=== PATIENT | female | born 1985 | race Caucasian/White ===

== ENCOUNTER 2016-06-26 20:20 | Emergency (ER) | payer MEDICAID ==
[~2016-06-26] VITALS: Ht 175.3 cm; Wt 112.0 kg
[~2016-06-26 20:20] MED LIST: AMOX875T PO; BACL10TA PO; DICL75 PO; PRED20 PO; VIST50CA PO; Z.0.NO CURRENT MEDS
[2016-06-26 20:21] VITALS: BP 139/76; PULSE 72; RESP 15; TEMP 98.3; O2SAT 96
[2016-06-26 22:00] VITALS: BP 125/58; PULSE 58; RESP 20; O2SAT 97
[2016-06-26] MEDS ORDERED: CEPH-460 PO (22:52)
[2016-06-26] MEDS ORDERED: NAPR500 PO (22:52)
--- NOTE | 2016-06-26 22:52 | PD ---
HPI Chief Complaint: Lump, Cyst, Hernia Time Seen by Provider: 21:53 Travel History International Travel<30 days: No Contact w/Intl Traveler<30days: No Traveled to known affect area: No History of Present Illness HPI So 31 year-old woman presents emergency room complaining of a tender nodule on the back of her head this gotten inflamed over the past couple days. She states she first noticed a small knot back or at a year or so ago. She is on past couple days gotten tender and inflamed. States she feels the whole back of her head is swollen. She is tearful and anxious. She states she's been having blurry vision and fullness in her head. She also states she's been very tired. History Past Medical History Narrative Medical Bipolar disorder Tetanus Vaccination: Unknown Influenza Vaccination: No LMP: 2 WKS AGO : 3 Para: 2 Past Surgical History Surgical History: No Previous Surgery Social History Alcohol Use: No Tobacco Use: Yes (1/2 PK/DAY) Allergies-Medications (Allergen,Severity, Reaction): Coded Allergies: No Known Allergies (Verified , 06/26/16) Reported Meds & Prescriptions Reported Meds & Active Scripts Active Keflex (Cephalexin) 500 Mg Cap 500 Mg PO Q8H 7 Days Naprosyn (Naproxen) 500 Mg Tab 500 Mg PO BID PRN Review of Systems Except as stated in HPI: all other systems reviewed are Neg Physical Exam Narrative Gen.: 31 year-old woman, anxious tearful HEENT: Really pretty normal appearance on my examination. She states that she has marked fullness in the back of her head. I can feel may be a small tender nodule the base of the right occiput, but no significant abnormalities are appreciable. She states that there is a line on the back of her head. The skin is normal in color. I don't see any erythema redness or drainage. The TMs are normal on both sides. The musculature in the next normal both sides. I don't see any evidence of a zoster rash or vesicular lesions. The area seems to be tender but don't see marked allodynia. She is not demonstrating any meningismus. Eyes: Sclera quiet and white. Pupils equal and reactive. NEURO: Moves all extremities. There is no facial asymmetry. Psychiatric: She is very tearful. She is very defensive when I told her that I don't see any abnormalities on her head that she is referring to. Data Data Last Documented VS Vital Signs Date Time Temp Pulse Resp B/P Pulse Ox O2 Delivery O2 Flow Rate FiO2 06/26/16 22:00 58 20 125/58 97 Room Air 06/26/16 20:21 98.3 Orders Complete Blood Count With Diff (06/26/16 22:38) Labs Laboratory Tests Test 06/26/16 22:45 White Blood Count 10.6 TH/MM3 Red Blood Count 5.26 MIL/MM3 Hemoglobin 15.2 GM/DL Hematocrit 44.7 % Mean Corpuscular Volume 85.0 FL Mean Corpuscular Hemoglobin 29.0 PG Mean Corpuscular Hemoglobin 34.1 % Concent Red Cell Distribution Width 13.6 % Platelet Count 299 TH/MM3 Mean Platelet Volume 7.5 FL Neutrophils (%) (Auto) 49.5 % Lymphocytes (%) (Auto) 39.4 % Monocytes (%) (Auto) 6.5 % Eosinophils (%) (Auto) 3.8 % Basophils (%) (Auto) 0.8 % Neutrophils # (Auto) 5.2 TH/MM3 Lymphocytes # (Auto) 4.2 TH/MM3 Monocytes # (Auto) 0.7 TH/MM3 Eosinophils # (Auto) 0.4 TH/MM3 Basophils # (Auto) 0.1 TH/MM3 CBC Comment DIFF FINAL Differential Comment MDM Medical Decision Making Medical Screen Exam Complete: Yes Emergency Medical Condition: Yes Interpretation(s) CBC is unremarkable. Differential Diagnosis Occipital neuralgia, shingles, abscess, brain mass, other Narrative Course Medical decision making Is a 31 year-old woman presents emergent department with what she describes as a large not in significant swelling on the side of her head. I can't really appreciate any abnormality except for maybe a small tender nodule in the posterior occiput. I don't see this significant fullness and tenderness. She is very emotional. This could be some kind of occipital neuralgia or early shingles. She could have some kind a sebaceous cyst in her scalp is gotten more inflamed or infected. Don't see any evidence of brain tumor or something more significant. We'll check CBC. Recommend treatment with Keflex and NSAIDs , and outpatient follow-up for further evaluation. I recommend against CT imaging of her head at this point as I think it very unlikely to shed any light on her symptoms. Review of records shows that she had right sided neck pain and a right otitis media. She may be having some kind of recurrent neuropathic right sided scalp pain. Diagnosis Primary Impression: Head pain Qualified Code: R51 - Nonintractable headache, unspecified chronicity pattern , unspecified headache type Additional Instructions: Take prescriptions as prescribed. Follow-up with your primary doctor in 2-4 days for repeat evaluation. Return to the emergency department for any worsening headache, vision changes, weakness, or any other new or worsening symptoms. Med/Other Pt SpecificInfo: Prescription(s) given Scripts Cephalexin (Keflex)500 Mg [id number] Mg PO Q8H 7 Days Ref 0 Prov:Seng Estrada MD 06/26/16 Naproxen (Naprosyn)500 Mg [id number] Mg PO BID PRN (PAIN SCALE 1 TO 10) #20 TAB Prov:Seng Estrada MD 06/26/16 Disposition: 01 DISCHARGE HOME Condition: Stable Seng Estrada MD Jun 26, 2016 22:52
[2016-06-26 23:02] LABS: AUTOMATED NEUTROPHIL # 5.2 TH/MM3 (1.8-7.7); BASOPHIL # 0.1 TH/MM3 (0-0.2); BASOPHIL % 0.8 % (0.0-2.0); EOSINOPHIL # 0.4 TH/MM3 (0-0.4); EOSINOPHIL % 3.8 % (0.0-4.0); HEMATOCRIT 44.7 % (35.0-46.0); HEMO FLAGS DIFF FINAL; LYMPH % 39.4 % (9.0-44.0); LYMPHOCYTE # 4.2 TH/MM3 (1.0-4.8); MEAN CORPUSCULAR HGB CONC 34.1 % (32.0-36.0); MONO % 6.5 % (0.0-8.0); NEUT % 49.5 % (16.0-70.0); PLATELET COUNT 299 TH/MM3 (150-450); RED BLOOD COUNT 5.26 MIL/MM3 (4.00-5.30); RED CELL DISTRIBUTION WIDTH 13.6 % (11.6-17.2); WHITE BLOOD COUNT 10.6 TH/MM3 (4.0-11.0)
--- NOTE | 2016-06-26 23:21 | PD ---
Data Data Last Documented VS Vital Signs Date Time Temp Pulse Resp B/P Pulse Ox O2 Delivery O2 Flow Rate FiO2 06/26/16 22:00 58 20 125/58 97 Room Air 06/26/16 20:21 98.3 Orders Complete Blood Count With Diff (06/26/16 22:38) Labs Laboratory Tests Test 06/26/16 22:45 White Blood Count 10.6 TH/MM3 Red Blood Count 5.26 MIL/MM3 Hemoglobin 15.2 GM/DL Hematocrit 44.7 % Mean Corpuscular Volume 85.0 FL Mean Corpuscular Hemoglobin 29.0 PG Mean Corpuscular Hemoglobin 34.1 % Concent Red Cell Distribution Width 13.6 % Platelet Count 299 TH/MM3 Mean Platelet Volume 7.5 FL Neutrophils (%) (Auto) 49.5 % Lymphocytes (%) (Auto) 39.4 % Monocytes (%) (Auto) 6.5 % Eosinophils (%) (Auto) 3.8 % Basophils (%) (Auto) 0.8 % Neutrophils # (Auto) 5.2 TH/MM3 Lymphocytes # (Auto) 4.2 TH/MM3 Monocytes # (Auto) 0.7 TH/MM3 Eosinophils # (Auto) 0.4 TH/MM3 Basophils # (Auto) 0.1 TH/MM3 CBC Comment DIFF FINAL Differential Comment MDM Supervised Visit with KAI: No Diagnosis Primary Impression: Head pain Qualified Code: R51 - Nonintractable headache, unspecified chronicity pattern , unspecified headache type Additional Impression: Occipital neuralgia of right side Patient Instructions: General Instructions, General Headache (ED) Departure Forms: Tests/Procedures Additional Instruction: Take prescriptions as prescribed. Follow-up with your primary doctor in 2-4 days for repeat evaluation. Return to the emergency department for any worsening headache, vision changes, weakness, or any other new or worsening symptoms. Scripts Cephalexin (Keflex)500 Mg [id number] Mg PO Q8H 7 Days Ref 0 Prov:Seng Estrada MD 06/26/16 Naproxen (Naprosyn)500 Mg [id number] Mg PO BID PRN (PAIN SCALE 1 TO 10) #20 TAB Prov:Seng Estrada MD 06/26/16 Disposition: 01 DISCHARGE HOME Condition: Stable Seng Estrada MD Jun 26, 2016 23:21
== END 2016-06-26 23:25 | disposition home or self-care (01) ==
LOC: NEPE 20:20
DX: R51 Headache (principal); H53.8 Other visual disturbances; F17.210 Nicotine dependence, cigarettes, uncomplicated; M54.81 Occipital neuralgia
CPT/HCPCS: 85025; 99284